=== PATIENT | female | born 1945 | race Caucasian/White ===

== ENCOUNTER 2020-11-10 21:07 | Inpatient (IN) ==
[2020-11-10] MEDS ORDERED: HYDROcodone/APAP 5/325MG TABLET PO PRN (22:43)
[2020-11-10] MEDS ORDERED: HYDROmorphone 1 MG/ML SYRINGE IV PRN (22:43)
[2020-11-10] MEDS ORDERED: ACETAMINOPHEN 325 MG TABLET PO PRN (22:48)
[2020-11-10] MEDS ORDERED: LACTATED RINGERS 1,000 ML IV SCH (23:00)
[2020-11-10] MEDS ORDERED: LORazepam 0.5 MG TABLET PO PRN (23:35)
[2020-11-11] MEDS ORDERED: ACETAMINOPHEN 325 MG TABLET PO ONE (01:36)
[2020-11-11] MEDS ORDERED: ceFAZolin 2 GM in DEXTROSE 5% IN WATER 50 ML IV SCH (06:00)
--- NOTE | 2020-11-11 07:18 | Consultation ---
DATE OF CONSULTATION: 11/10/2020 CHIEF COMPLAINT: Left hip pain. HISTORY OF PRESENT ILLNESS: This is a 75-year-old female who had a same level fall onto her hip, had immediate pain, swelling and deformity of the left hip. She was unable to ambulate, was brought in to [facility] where she was diagnosed with a left femoral neck fracture with significant impaction and osteoporosis. She otherwise has been a community ambulator and has been fairly healthy. She does have a valve that put her in a high risk category. She has agreed to proceed with surgery and was transferred here to [facility]. Her vital signs have been stable with a temperature of 99.3, blood pressure 125/66, respiratory rate 18, pulse 93, satting at 97%. No difficulty with breathing. REVIEW OF SYSTEMS: No chest pain, no shortness of breath. She notes that she did not lose consciousness with her fall. She still complains of hip pain as being her major complaint, which is located in the groin and it has caused her significant spasms. ALLERGIES: BIOTIN. HOME MEDICATIONS: 1. Prednisone 1 tablet q.a.m. 2. Synthroid 25 mcg p.o. q.d. PAST MEDICAL HISTORY: None pertinent. PAST SURGICAL HISTORY: None pertinent. SOCIAL HISTORY: Alcohol: None. Recreational drugs: None. PHYSICAL EXAMINATION: GENERAL: The patient is a very pleasant elderly 75-year-old female who is alert, cooperative, and in good overall condition. LUNGS: Clear to auscultation. CARDIOVASCULAR: Regular rate and rhythm. She does have a II/ murmur. ABDOMEN: Soft, nontender. LOWER EXTREMITIES: She has significant left hip pain located within the groin. She has been unable to ambulate any significant distance. She has pain with any range of motion of the hip. Feet are pink and warm with good capillary refill. DIAGNOSTIC STUDIES: X-rays of left hip show a femoral neck impacted fracture with severe comminution. Her lab work appears to be fairly healthy without any significant abnormalities as well as EKG showing a regular rate and rhythm. PLAN: Treatment will be a left cemented hemiarthroplasty to be done at her convenience. After these findings, we discussed the risks and benefits of open reduction internal fixation versus cannulated screws. Because of her osteoporosis and comminution of the fracture, I have recommended cemented hemiarthroplasty to be done tomorrow about noon or early afternoon. She agrees to proceed, understanding the risks and the benefits of the surgery including heart attack, strokes, and even could occur at her age, but these would be rare events. She can eat tonight and drink through the morning, and we will see how she does. RBH:kh Job ID: [id number] Doc ID: [id number] Isaiah Phillips MD
[2020-11-11] MEDS ORDERED: SCOPOLAMINE 1 PATCH PATCH TOPICAL PRN (08:00)
[2020-11-11] MEDS ORDERED: IPRATROPIUM/ALBUTEROL 3 ML AMPUL.NEB NEB PRN ×2 (08:00→15:55)
[2020-11-11] MEDS ORDERED: LORazepam (PP) 1 MG TABLET (#4) PO SCH (09:00)
[2020-11-11] MEDS: 0.9 % SODIUM CHLORIDE 10 ML SYRINGE IV SCH ×3 (09:11→21:19)
[2020-11-11] MEDS ORDERED: GENTAMICIN SULFATE 800 MG/20 ML VIAL IR ONE (14:58)
[2020-11-11] MEDS ORDERED: PROPOFOL 200 MG/20 ML VIAL IV ONE (15:33)
[2020-11-11] MEDS ORDERED: LIDOCAINE HCL/PF 100 MG/5 ML SYRINGE IV ONE (15:33)
[2020-11-11] MEDS ORDERED: MAGNESIUM SULFATE 2 GM/50 ML BAG IV ONE (15:33)
[2020-11-11] MEDS ORDERED: KETAMINE 100 MG/ML ML ONE (15:33)
[2020-11-11] MEDS ORDERED: GLYCOPYRROLATE 0.2 MG/ML VIAL IV ONE (15:33)
[2020-11-11] MEDS ORDERED: TRANEXAMIC ACID 1,000 MG/10 ML VIAL IV ONE ×2 (15:33→16:32)
[2020-11-11] MEDS ORDERED: PHENYLEPHRINE 10 MG/ML VIAL ONE (15:33)
[2020-11-11] MEDS ORDERED: ONDANSETRON 4 MG/2 ML VIAL ONE (15:33)
[2020-11-11] MEDS ORDERED: DEXAMETHASONE 10 MG/ML VIAL ONE (15:33)
[2020-11-11] MEDS ORDERED: LABETALOL 5 MG/ML ML IV PRN (15:55)
[2020-11-11] MEDS ORDERED: fentaNYL 100 MCG/2 ML VIAL IV PRN (15:55)
[2020-11-11] MEDS ORDERED: LACTATED RINGERS 250 ML IV PRN (15:55)
[2020-11-11] MEDS ORDERED: ACETAMINOPHEN 1,000 MG/100 ML BAG IV ONE (15:55)
[2020-11-11] MEDS ORDERED: METHOCARBAMOL 1,000 MG/10 ML VIAL IV PRN (15:55)
[2020-11-11] MEDS ORDERED: BENZOCAINE/MENTHOL 1 LOZENGE PO PRN ×2 (15:55→16:32)
[2020-11-11] MEDS ORDERED: METOPROLOL TARTRATE 5 MG/5 ML VIAL IV PRN (15:55)
[2020-11-11] MEDS ORDERED: LACTATED RINGERS 1,000 ML IV SCH (16:00)
[2020-11-11] MEDS ORDERED: ONDANSETRON 4 MG/2 ML VIAL IV PRN ×3 (16:32)
[2020-11-11] MEDS ORDERED: FLEETS ADULT ENEMA PR PRN (16:32)
[2020-11-11] MEDS ORDERED: MAGNESIUM HYDROXIDE 30 ML ORAL.SUSP PO PRN (16:32)
[2020-11-11] MEDS ORDERED: BISACODYL 10 MG SUPP.RECT PR PRN (16:32)
[2020-11-11] MEDS ORDERED: HYDROmorphone 1 MG/ML SYRINGE IV PRN (16:32)
[2020-11-11] MEDS ORDERED: KETOROLAC 15 MG/ML VIAL IV PRN (16:32)
[2020-11-11] MEDS ORDERED: ACETAMINOPHEN 325 MG TABLET PO PRN (16:32)
[2020-11-11] MEDS ORDERED: POLYETHYLENE GLYCOL 3350 17 GM PACKET PO PRN (16:32)
--- NOTE | 2020-11-11 16:32 | Brief Operative Note ---
Brief Operative Note Date of procedure: 11/11/20 Pre-op diagnosis: left hip femoral neck fracture Post-op diagnosis: same Procedure: left hip cemented hemiarthroplasty Grafts/Implants: Yes Anesthesia: GETA Complications: none Surgeon: Isaiah Phillips Fixture Builder: Rigo Bazan Estimated blood loss (cc): 50 Tourniquet Time (Minutes): 0 Specimens Removed/Pathology: none sent Condition: stable Disposition: PACU
--- NOTE | 2020-11-11 16:40 | Discharge Plan ---
Discharge Instructions - [facility] Patient Instructions Total Hip Protocol: Follow activity instructions as provided by Physical Therapy. Dressing Care: May shower in 2 days and Other Additional Dressing Instructions: Leave Dermabond patch intact until followup Discharge Plan Patient/Caregiver Discharge Instructions Activity: ambulate only with your walker and as per physical therapy Diet: Regular Diet Activity Restrictions/Additional Instructions: Keep wedge pillow in place while in bed and sleeping otherwise may remove while awake Prescriptions: New hydrocodone-acetaminophen 5-325 mg Tablet 1 tab PO Q4HP PRN (Reason: Per Pain Protocol) Qty: 75 RF: 0 aspirin 325 mg Tablet,Delayed Release (Dr/Ec) 325 mg PO BID Qty: 60 RF: 0 docusate sodium [DOK] 100 mg Capsule 100 mg PO BID Qty: 60 RF: 0 No Action levothyroxine [Synthroid] 25 mcg Tablet 25 mcg PO QDAY RF: 0 Other Ambulatory Orders: Brace/Splint (ONCE) Location: None Selected Ordered By: Rigo Bazan OT Discharge Order (Routine) Location: None Selected Ordered By: Rigo Bazan Physical Therapy DC - General (Routine) Location: None Selected Ordered By: Rigo Bazan Physical Rafi DC - [facility] (Routine) Location: None Selected Ordered By: Rigo Bazan Toilet Riser Discharge Order (ONCE) Location: None Selected Ordered By: Rigo Bazan Walker (ONCE) Location: None Selected Ordered By: Rigo Bazan Follow Up Plan Follow up with: Rigo Bazan PA-C [Physician Trimming Cutter] - Patient Disposition: Home, Self-Care Prognosis: Good Rehab Potential: Good I certify that the patient requires SNF services: No Overall status at discharge: patient is progressing back to baseline Discharge Orders: Discharge Order (Routine); Ordered 11/12/20 Ordered By: Rigo Bazan
--- NOTE | 2020-11-11 17:44 | XRay Report ---
CLINICAL INFORMATION: Post-Op Total Hip COMPARISON: None. FINDINGS: Left total hip prostheses is anatomically aligned. Mild degeneration both SI joints and right hip joint. No osseous abnormality. Moderate L5-S1 degenerative disc disease noted. Soft tissue swelling over the surgical site. IMPRESSION: Left total hip prostheses in anatomic alignment. Interpreted and Authenticated by: Kevin Back 11/11/20
[2020-11-11] MEDS: LACTATED RINGERS 1,000 ML IV SCH (17:47)
[2020-11-11] MEDS: DOCUSATE SODIUM 100 MG CAPSULE PO SCH (21:18)
[2020-11-11] MEDS: ASPIRIN 325 MG ENTERIC COATED TABLET PO SCH (21:18)
[2020-11-11] MEDS: SENNOSIDES 1 TABLET PO SCH (21:18)
[2020-11-11] MEDS ORDERED: 0.9 % SODIUM CHLORIDE 10 ML SYRINGE IV SCH (22:00)
[2020-11-11] MEDS: ceFAZolin 1 GM VIAL IV SCH (23:12)
[2020-11-12] MEDS: DOCUSATE SODIUM 100 MG CAPSULE PO SCH ×2 (07:25→22:13)
[2020-11-12] MEDS: ceFAZolin 1 GM VIAL IV SCH (07:25)
[2020-11-12] MEDS: LEVOTHYROXINE 25 MCG TABLET PO SCH (07:25)
[2020-11-12] MEDS: ASPIRIN 325 MG ENTERIC COATED TABLET PO SCH ×2 (07:25→22:13)
[2020-11-12] MEDS: 0.9 % SODIUM CHLORIDE 10 ML SYRINGE IV SCH ×3 (07:30→22:13)
[2020-11-12] MEDS: LACTATED RINGERS 1,000 ML IV SCH ×2 (07:31→13:57)
--- NOTE | 2020-11-12 07:47 | Operative Note ---
DATE OF OPERATION: 11/11/2020 PREOPERATIVE DIAGNOSIS: Left femoral neck fracture, displaced. POSTOPERATIVE DIAGNOSES: 1. Left femoral neck fracture, displaced. 2. Osteoporosis. PROCEDURE: Left cemented hemiarthroplasty. SURGEON: Isaiah Phillips M.D. RAILROAD POLICE OFFICER: Rigo Bazan PA-C. This providers expertise and technical skill were required throughout the case. The EL[facility] assisted with preoperative coordination, intraoperative retraction, wound closure, and dressing and splint application, as well as postoperative documentation and care coordination. ANESTHESIA: General LMA anesthesia. COMPLICATIONS: None. DESCRIPTION OF PROCEDURE: The patient was brought to the operating room, put to sleep with general LMA anesthesia. Once asleep, the patient had the left hip sterilely prepped and draped in the usual sterile fashion. Timeout performed confirming the operative site by initials, consent form, and x-rays. We then placed Ioban over the skin and made a superior approach to the hip. We subluxed the hip and made the neck cut through the fracture site. Once done, we were able to then broach up to the size of 5 stem with a +2.5 neck being the most appropriate. We used a 45 mm bipolar head with a ceramic ball with 2.5 plus neck length because of leg length and offset. Once this was confirmed, we then reduced the stem. We prepared the canal, placed a canal restrictor centralizer of 11 mm and placed a 5 mm cemented stem. Excess cement was removed. We then retrialed prior to implant. The +2.5 neck length was most appropriate. We implanted a ceramic ball that was 2.5 mm with a dual mobility ball, bipolar, which was a 45 mm outer diameter. This was reduced. We repaired the capsule with Ethibond, closed the skin with Stratafix and adhesive closure. The patient tolerated this well without complication. RBH:kh Job ID: [id number] Doc ID: [id number] Isaiah Phillips MD
[2020-11-12] MEDS: SENNOSIDES 1 TABLET PO SCH (22:13)
[2020-11-13] MEDS: 0.9 % SODIUM CHLORIDE 10 ML SYRINGE IV SCH (04:24)
[2020-11-13] MEDS: LEVOTHYROXINE 25 MCG TABLET PO SCH (08:22)
[2020-11-13] MEDS: DOCUSATE SODIUM 100 MG CAPSULE PO SCH (08:22)
[2020-11-13] MEDS: ASPIRIN 325 MG ENTERIC COATED TABLET PO SCH (08:22)
== END 2020-11-13 14:20 | disposition home or self-care (01) | DRG 522 ==
LOC: MEDSUR 22:00
PROVIDERS: ADMIT Orthopaedic Surgery; ATTEND Orthopaedic Surgery